=== PATIENT | male | born 1975 | race American Indian/Alaskan Native ===

== ENCOUNTER 2018-07-22 11:11 | Inpatient (IN) | payer OTHER ==
[2018-07-22] MEDS ORDERED: ASPIRIN PO ONE (11:26)
--- NOTE | 2018-07-22 11:28 | Emergency Department Report ---
Chief Complaint: Chest Pain Stated Complaint: CHEST PAIN Time Seen by Provider: 07/22/18 11:23 - HPI History of Present Illness: This is a 42 y.o. male that presents with chest pain for 1 hour. PMH Migraines, inguinal hernia Can't recall heart disease or medications. PCP with Prashant. Current cigarette and marijuana smoker Reports pain as tightening radiating to LUE with numbness. - Exam Vital Signs: Vital Signs 07/22/18 11:23 Temperature 97.8 F Pulse Rate 74 Respiratory 18 Rate Blood Pressure 154/81 O2 Sat by Pulse 100 Oximetry MSE screening note: Focused history and physical exam performed. Due to findings the following was ordered: Labs and Chest X-ray Main ED for further evaluation. ED Disposition for MSE Condition: Stable
[2018-07-22 12:12] LABS: Basophils % (Auto) 0.3 % (0.0-1.8); Eosinophils # (Auto) 0.1 K/mm3 (0.0-0.4); Eosinophils % (Auto) 2.4 % (0.0-4.3); Hematocrit 42.2 % (35.5-45.6); Hemoglobin 14.8 gm/dl (11.8-15.2); Lymphocytes # (Auto) 1.6 K/mm3 (1.2-5.4); Mean Corpuscular HGB Conc 35 % (32-34); Mean Corpuscular Volume 98 fl (84-94); Monocytes # (Auto) 0.5 K/mm3 (0.0-0.8); Monocytes % (Auto) 7.8 % (0.0-7.3); Platelet Count 178 K/mm3 (140-440); Red Cell Distribution Width 14.4 % (13.2-15.2)
[2018-07-22 12:27] LABS: BUN/Creatinine Ratio 14; Blood Urea Nitrogen 13 mg/dL (9-20); Calcium 9.3 mg/dL (8.4-10.2); Hemolysis Index 2
--- NOTE | 2018-07-22 12:48 | Emergency Department Report ---
ED Chest Pain HPI - General Chief Complaint: Chest Pain Stated Complaint: CHEST PAIN Time Seen by Provider: 07/22/18 11:23 Source: patient Mode of arrival: Ambulatory Limitations: No Limitations - History of Present Illness Initial Comments: 42 year old male complains of left-sided chest pain. He states it feels like a squeezing in the left side of his chest she sometimes feels in the back and cording to triage radiates to his left arm. He has had episodes similar to this. He states that he had another episode today at the point of ejaculation with intercourse. He is concerned because his cousin of an SD a few days ago. He also states there is coronary artery disease on his mother's side and affecting his brother. He has had no prior workup. He is not having chest pain now and other symptoms have resolved. He states that he does periodically feel short of breath with the chest pain. He's done no recent traveling. He does not complain of leg pain or swelling. He gives a somewhat confused past medical history to include aching a "heart pill" which is apparently metoprolol. His states that it is for high blood pressure. He lists "migraines and early MS" as other medical problems. He states he takes another unknown medication for migraine. MD Complaint: chest pain -: week(s), month(s) Onset: during rest Pain Location: left chest Pain Radiation: LUE, back Severity: moderate Quality: tightness Consistency: now resolved Improves With: nothing Worsens With: nothing re: dyspnea. denies: nausea, vomting, diaphoresis Other Symptoms: denies: cough, fever, syncope Treatments Prior to Arrival: none Aspirin use within the Past 7 Days: (0) No - Related Data Home Medications Medication Instructions Recorded Confirmed Last Taken Metoprolol [Lopressor] 25 mg PO DAILY 07/22/18 07/22/18 Unknown SUMAtriptan SUCCINATE [Imitrex] 50 mg PO ONCE PRN 07/22/18 07/22/18 Unknown Allergies Allergy/AdvReac Type Severity Reaction Status Date / Time acetaminophen AdvReac Unknown Verified 07/22/18 11:13 Heart Score - HEART Score History: Moderately suspicious EKG: Non-specific Age: < 45 Risk factors: > 3 risk factors or hx of atherosclerotic disease Troponin: < normal limit HEART Score: 4 - Critical Actions Critical Actions: 4-6 pts:12-16.6% risk of adverse cardiac event. Should be admitted ED Review of Systems ROS: Stated complaint: CHEST PAIN Other details as noted in HPI Constitutional: denies: chills, fever Eyes: denies: eye pain, eye discharge, vision change ENT: denies: ear pain, throat pain Respiratory: shortness of breath. denies: cough, wheezing Cardiovascular: chest pain. denies: palpitations Endocrine: no symptoms reported Gastrointestinal: denies: abdominal pain, nausea, diarrhea Genitourinary: denies: urgency, dysuria Musculoskeletal: denies: back pain, joint swelling, arthralgia Skin: denies: rash, lesions Neurological: denies: headache, weakness, paresthesias Psychiatric: denies: anxiety, depression Hematological/Lymphatic: denies: easy bleeding, easy bruising ED Past Medical Hx - Past Medical History Previous Medical History?: Yes Additional medical history: migraines. 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 - Social History Smoking Status: Current Every Day Smoker Substance Use Type: Alcohol, Marijuana - Medications Home Medications: Home Medications Medication Instructions Recorded Confirmed Last Taken Type Metoprolol [Lopressor] 25 mg PO DAILY 07/22/18 07/22/18 Unknown History SUMAtriptan SUCCINATE [Imitrex] 50 mg PO ONCE PRN 07/22/18 07/22/18 Unknown His tory ED Physical Exam - General Limitations: No Limitations General appearance: alert, in no apparent distress - Head Head exam: Present: atraumatic, normocephalic - Eye Eye exam: Present: normal appearance. Absent: scleral icterus - ENT ENT exam: Present: mucous membranes moist - Neck Neck exam: Present: normal inspection - Respiratory Respiratory exam: Present: normal lung sounds bilaterally. Absent: respiratory distress - Cardiovascular Cardiovascular Exam: Present: regular rate, normal rhythm. Absent: systolic murmur, diastolic murmur, rubs, gallop - GI/Abdominal GI/Abdominal exam: Present: soft, normal bowel sounds. Absent: distended, tenderness, guarding, rebound, rigid - Rectal Rectal exam: Present: deferred - Extremities Exam Extremities exam: Present: normal inspection - Back Exam Back exam: Present: normal inspection - Neurological Exam Neurological exam: Present: alert, oriented X3, CN II-XII intact. Absent: motor sensory deficit - Psychiatric Psychiatric exam: Present: normal affect, normal mood - Skin Skin exam: Present: warm, dry, intact, normal color. Absent: rash ED Course Vital Signs 07/22/18 11:23 Temperature 97.8 F Pulse Rate 74 Respiratory 18 Rate Blood Pressure 154/81 O2 Sat by Pulse 100 Oximetry - Reevaluation(s) Reevaluation #1: Patient was enough risk factors to warrant workup in the hospital. D-dimer is pending. Patient is discussed and admitted to Dr. Flores for further care and evaluation. 07/22/18 13:38 JAHAIRA score - Jahaira Score Age > 65: (0) No Aspirin use within the Past 7 Days: (0) No 3 or more CAD Risk Factors: (1) Yes 2 or more Angina events in past 24 hrs: (0) No Known CAD with more than 50% Stenosis: (0) No Elevated Cardiac Markers: (0) No ST Deviation Greater than 0.5mm: (0) No JAHAIRA Score: 1 ED Medical Decision Making - Lab Data Result diagrams: 07/22/18 11:48 07/22/18 11:48 Laboratory Results - last 24 hr 07/22/18 07/22/18 11:48 11:48 WBC 6.1 RBC 4.30 Hgb 14.8 Hct 42.2 MCV 98 H MCH 34 H MCHC 35 H RDW 14.4 Plt Count 178 Lymph % (Auto) 27.0 [place] % (Auto) 7.8 H Eos % (Auto) 2.4 Baso % (Auto) 0.3 Lymph # 1.6 [place] # 0.5 Eos # 0.1 Baso # 0.0 Seg Neutrophils % 62.5 Seg Neutrophils # 3.8 Sodium 141 Potassium 4.5 Chloride 105.1 Carbon Dioxide 25 Anion Gap 15 BUN 13 Creatinine 0.9 Estimated GFR > 60 BUN/Creatinine Ratio 14 Glucose 97 Calcium 9.3 Troponin T < 0.010 - EKG Data -: EKG Interpreted by Me EKG shows normal: sinus rhythm, axis, intervals, QRS complexes, ST-T waves Rate: normal - EKG Data Interpretation: no acute changes, LVH (consider) - Radiology Data Radiology results: image reviewed Chest x-ray no acute process Critical care attestation.: If time is entered above; I have spent that time in minutes in the direct care of this critically ill patient, excluding procedure time. ED Disposition Clinical Impression: Chest pain Qualifiers: Chest pain type: unspecified Qualified Code(s): R07.9 - Chest pain, unspecified Disposition: DC-09 OP ADMIT IP TO THIS HOSP Is pt being admited?: Yes Does the pt Need Aspirin: Yes Condition: Stable Instructions: Chest Pain (ED) Time of Disposition: 13:39
--- NOTE | 2018-07-22 13:02 | XRay Report ---
PROCEDURE: XR CHEST 1V AP TECHNIQUE: Chest, one view HISTORY: Chest Pain COMPARISON: None FINDINGS: The heart size is normal. There is no pulmonary vascular congestion seen. Mediastinal contours are normal. Lungs are clear. There is no pleural effusion seen. There is no pneumothorax seen. IMPRESSION: No acute abnormality identified. This document is electronically signed by Natalya Chamberlain MD., Jul 22 2018 12:59:45 PM ET
[2018-07-22] MEDS ORDERED: ASPIRIN ONE (13:59)
[2018-07-22 14:06] LABS: INR 0.98 (0.87-1.13)
[2018-07-22 14:07] LABS: Partial Thromboplastin Time 30.7 Sec. (24.2-36.6)
[2018-07-22 14:20] LABS: Alanine Aminotransferase 14 units/L (7-56); Albumin 4.3 g/dL (3.9-5); Creatine Kinase MB 1.4 ng/mL (0.0-4.0)
[2018-07-22 14:21] LABS: Bilirubin,Direct < 0.2 mg/dL (0-0.2)
[2018-07-22 14:56] LABS: Bilirubin,Urine NEG (Negative); Blood,Urine NEG (Negative); Color,Urine Yellow (Yellow); Mucus,Urine FEW /HPF; Protein,Urine <15 mg/dL mg/dL (Negative); Urobilinogen,Urine < 2.0 mg/dL (<2.0)
[2018-07-22 15:06] LABS: Amphetamine Screen,Urine PRESUMPTIVE NEGATIVE; Benzodiazepines Screen,Urine PRESUMPTIVE NEGATIVE; Cocaine Screen,Urine PRESUMPTIVE NEGATIVE; Methadone Screen,Urine PRESUMPTIVE NEGATIVE; Opiate Screen,Urine PRESUMPTIVE NEGATIVE
[2018-07-22 15:53] LABS: Cannabinoid Screen,Urine PRESUMPTIVE POSITIVE
--- NOTE | 2018-07-22 20:59 | History and Physical Report ---
History of Present Illness Date of examination: 07/22/18 Date of admission: 07/22/18 13:40 Chief complaint: Chest pain since AM History of present illness: 42 y/o male with pmh of Migraines and Htn comes in for L sided chest pain since financial aid.Chest pain radiating to the back.and left arm.Pain is sharp and intermittent.No diaphoresis ,palpitations or SOB.Patient is concerned bcoz his cousin of [place] recently.Also has strong family history CAD affecting his Mother and Uncle.No exacerbating or relieving factors. Past Medical History Previous Medical History?: Yes Migraines. 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 Social History Smoking Status: Current Every Day Smoker Substance Use Type: Alcohol, Marijuana Family History CAD Medications Home Medications: Home Medications Medication Instructions Recorded Confirmed Last Taken Type Metoprolol [Lopressor] 25 mg PO DAILY 07/22/18 07/22/18 Unknown History SUMAtriptan SUCCINATE [Imitrex] 50 mg PO ONCE PRN 07/22/18 07/22/18 Unknown History Review of Systems ROS: Stated complaint: CHEST PAIN Other details as noted in HPI Constitutional: denies: chills, fever Eyes: denies: eye pain, eye discharge, vision change ENT: denies: ear pain, throat pain Respiratory: shortness of breath. denies: cough, wheezing Cardiovascular: chest pain. denies: palpitations Endocrine: no symptoms reported Gastrointestinal: denies: abdominal pain, nausea, diarrhea Genitourinary: denies: urgency, dysuria Musculoskeletal: denies: back pain, joint swelling, arthralgia Skin: denies: rash, lesions Neurological: denies: headache, weakness, paresthesias Psychiatric: denies: anxiety, depression Hematological/Lymphatic: denies: easy bleeding, easy bruising Medications and Allergies Allergies Allergy/AdvReac Type Severity Reaction Status Date / Time acetaminophen AdvReac Unknown Verified 07/22/18 11:13 Home Medications Medication Instructions Recorded Confirmed Last Taken Type Metoprolol [Lopressor] 25 mg PO DAILY 07/22/18 07/22/18 Unknown History SUMAtriptan SUCCINATE [Imitrex] 50 mg PO ONCE PRN 07/22/18 07/22/18 Unknown History Exam - Constitutional Vitals: Temp Pulse Resp BP Pulse Ox 97.7 F 54 L 18 134/75 99 07/22/18 19:24 07/22/18 19:24 07/22/18 19:24 07/22/18 19:24 07/22/18 19:24 General appearance: Present: no acute distress, well-nourished - EENT Eyes: Present: PERRL ENT: hearing intact, clear oral mucosa - Neck Neck: Present: supple, normal ROM - Respiratory Respiratory effort: normal Respiratory: bilateral: CTA - Cardiovascular Heart rate: 60 Rhythm: regular Heart Sounds: Present: S1 & S2. Absent: rub, click - Extremities Extremities: no ischemia, pulses intact, pulses symmetrical, No edema Peripheral Pulses: within normal limits - Abdominal General gastrointestinal: Present: soft, non-tender, non-distended, normal bowel sounds Male genitourinary: Present: normal - Integumentary Integumentary: Present: clear, warm, dry - Musculoskeletal Musculoskeletal: gait normal, strength equal bilaterally - Psychiatric Psychiatric: appropriate mood/affect, intact judgment & insight - Neurologic Neurologic: CNII-XII intact, moves all extremities - Allied Health Allied health notes reviewed: nursing, case management Results - Labs CBC & Chem 7: 07/22/18 11:48 07/22/18 11:48 Labs: Laboratory Last Values WBC 6.1 K/mm3 (4.5-11.0) 07/22/18 11:48 RBC 4.30 M/mm3 (3.65-5.03) 07/22/18 11:48 Hgb 14.8 gm/dl (11.8-15.2) 07/22/18 11:48 Hct 42.2 % (35.5-45.6) 07/22/18 11:48 MCV 98 fl (84-94) H 07/22/18 11:48 MCH 34 pg (28-32) H 07/22/18 11:48 MCHC 35 % (32-34) H 07/22/18 11:48 RDW 14.4 % (13.2-15.2) 07/22/18 11:48 Plt Count 178 K/mm3 (140-440) 07/22/18 11:48 Lymph % (Auto) 27.0 % (13.4-35.0) 07/22/18 11:48 [place] % (Auto) 7.8 % (0.0-7.3) H 07/22/18 11:48 Eos % (Auto) 2.4 % (0.0-4.3) 07/22/18 11:48 Baso % (Auto) 0.3 % (0.0-1.8) 07/22/18 11:48 Lymph # 1.6 K/mm3 (1.2-5.4) 07/22/18 11:48 [place] # 0.5 K/mm3 (0.0-0.8) 07/22/18 11:48 Eos # 0.1 K/mm3 (0.0-0.4) 07/22/18 11:48 Baso # 0.0 K/mm3 (0.0-0.1) 07/22/18 11:48 Seg Neutrophils % 62.5 % (40.0-70.0) 07/22/18 11:48 Seg Neutrophils # 3.8 K/mm3 (1.8-7.7) 07/22/18 11:48 PT 13.6 Sec. (12.2-14.9) 07/22/18 13:45 INR 0.98 (0.87-1.13) 07/22/18 13:45 APTT 30.7 Sec. (24.2-36.6) 07/22/18 13:45 210.16 ng/mlDDU (0-234) 07/22/18 13:45 Sodium 141 mmol/L (137-145) 07/22/18 11:48 Potassium 4.5 mmol/L (3.6-5.0) 07/22/18 11:48 Chloride 105.1 mmol/L (98-107) 07/22/18 11:48 Carbon Dioxide 25 mmol/L (22-30) 07/22/18 11:48 15 mmol/L 07/22/18 11:48 BUN 13 mg/dL (9-20) 07/22/18 11:48 0.9 mg/dL (0.8-1.5) 07/22/18 11:48 Estimated GFR > 60 ml/min 07/22/18 11:48 14 % 07/22/18 11:48 Glucose 97 mg/dL (75-100) 07/22/18 11:48 Calcium 9.3 mg/dL (8.4-10.2) 07/22/18 11:48 Magnesium 1.70 mg/dL (1.7-2.3) 07/22/18 13:45 0.60 mg/dL (0.1-1.2) 07/22/18 13:45 < 0.2 mg/dL (0-0.2) 07/22/18 13:45 AST 14 units/L (5-40) 07/22/18 13:45 ALT 14 units/L (7-56) 07/22/18 13:45 59 units/L (35-129) 07/22/18 13:45 243 units/L (55-170) H 07/22/18 13:45 CK-MB (CK-2) 1.4 ng/mL (0.0-4.0) 07/22/18 13:45 CK-MB (CK-2) Rel Index 0.5 (0-4) 07/22/18 13:45 < 0.010 ng/mL (0.00-0.029) 07/22/18 17:37 NT-Pro-B Natriuret Pep 26.30 pg/mL (0-450) 07/22/18 13:45 6.7 g/dL (6.3-8.2) 07/22/18 13:45 4.3 g/dL (3.9-5) 07/22/18 13:45 1.8 % 07/22/18 13:45 Yellow (Yellow) 07/22/18 14:44 Clear (Clear) 07/22/18 14:44 9.0 (5.0-7.0) H 07/22/18 14:44 Ur Specific [place] 1.019 (1.003-1.030) 07/22/18 14:44 <15 mg/dl mg/dL (Negative) 07/22/18 14:44 Neg mg/dL (Negative) 07/22/18 14:44 Neg mg/dL (Negative) 07/22/18 14:44 Neg (Negative) 07/22/18 14:44 Neg (Negative) 07/22/18 14:44 Neg (Negative) 07/22/18 14:44 < 2.0 mg/dL (<2.0) 07/22/18 14:44 Ur Leukocyte Esterase Neg (Negative) 07/22/18 14:44 2.0 /HPF (0.0-6.0) 07/22/18 14:44 2.0 /HPF (0.0-6.0) 07/22/18 14:44 U Epithel Cells (Auto) 2.0 /HPF (0-13.0) 07/22/18 14:44 Few /HPF 07/22/18 14:44 Presumptive negative 07/22/18 14:44 Presumptive negative 07/22/18 14:44 Ur Barbiturates Screen Presumptive negative 07/22/18 14:44 Ur Phencyclidine Scrn Presumptive negative 07/22/18 14:44 Ur Amphetamines Screen Presumptive negative 07/22/18 14:44 U Benzodiazepines Scrn Presumptive negative 07/22/18 14:44 Presumptive negative 07/22/18 14:44 U Marijuana (THC) Screen Presumptive positive 07/22/18 14:44 Disclamer 07/22/18 14:44 Short CBC 07/22/18 Range/Units 11:48 WBC 6.1 (4.5-11.0) K/mm3 Hgb 14.8 (11.8-15.2) gm/dl Hct 42.2 (35.5-45.6) % Plt Count 178 (140-440) K/mm3 BMP 07/22/18 11:48 Sodium 141 Potassium 4.5 Chloride 105.1 Carbon Dioxide 25 BUN 13 Creatinine 0.9 Glucose 97 Calcium 9.3 Cardiac Enzymes 07/22/18 07/22/18 07/22/18 Range/Units 11:48 13:45 14:44 Total Creatine Kinase 243 H (55-170) units/L CK-MB (CK-2) 1.4 (0.0-4.0) ng/mL Troponin T < 0.010 < 0.010 (0.00-0.029) ng/mL 07/22/18 07/22/18 Range/Units 17:37 21:36 Total Creatine Kinase (55-170) units/L CK-MB (CK-2) (0.0-4.0) ng/mL Troponin T < 0.010 < 0.010 (0.00-0.029) ng/mL Liver Function 07/22/18 Range/Units 13:45 Total Bilirubin 0.60 (0.1-1.2) mg/dL Direct Bilirubin < 0.2 (0-0.2) mg/dL AST 14 (5-40) units/L ALT 14 (7-56) units/L Alkaline Phosphatase 59 (35-129) units/L Albumin 4.3 (3.9-5) g/dL Urine 07/22/18 Range/Units 14:44 Urine Color Yellow (Yellow) Urine pH 9.0 H (5.0-7.0) Ur Specific [place] 1.019 (1.003-1.030) Urine Protein <15 mg/dl (Negative) mg/dL Urine Glucose (UA) Neg (Negative) mg/dL - Imaging and Cardiology EKG: report reviewed (NSR 60/min LVH) Chest x-ray: report reviewed (NAF) Assessment and Plan Advance Directives: Yes (Full code) VTE prophylaxis?: Chemical Plan of care discussed with patient/family: Yes - Patient Problems (1) Chest pain Current Visit: Yes Status: Acute Qualifiers: Chest pain type: unspecified Qualified Code(s): R07.9 - Chest pain, unspecified Plan to address problem: Chest pain r/o AR Serial Troponins andLexiscan in AM Costochondritis and GERD in differential diagnosis (2) HTN (hypertension) Current Visit: Yes Status: Chronic Qualifiers: Hypertension type: essential hypertension Qualified Code(s): I10 - Essential (primary) hypertension Plan to address problem: Cont Metoprolol (3) Migraine Current Visit: Yes Status: Chronic Plan to address problem: Cont Sumatriptan on Prn basis (4) DVT prophylaxis Current Visit: Yes Status: Acute Plan to address problem: On Lovenox and GI pophylaxis
[2018-07-22] MEDS ORDERED: TYLENOL PO PRN (21:01)
[2018-07-22] MEDS ORDERED: PERCOCET 5/325 PO PRN (21:01)
[2018-07-22] MEDS ORDERED: SODIUM CHLORIDE FLUSH SYRINGE 10 ML IV PRN (21:01)
[2018-07-22] MEDS ORDERED: DILAUDID IV PRN (21:01)
[2018-07-22] MEDS ORDERED: ZOFRAN IV PRN (21:01)
[2018-07-22] MEDS ORDERED: IMITREX PO PRN (21:14)
[2018-07-22] MEDS: PEPCID IV SCH (21:44)
[2018-07-22] MEDS: SODIUM CHLORIDE FLUSH SYRINGE 10 ML IV SCH (21:45)
[2018-07-22] MEDS: LOPRESSOR PO SCH (22:52)
[2018-07-23 07:44] LABS: Basophils # (Auto) 0.1 K/mm3 (0.0-0.1); Basophils % (Auto) 0.7 % (0.0-1.8); Eosinophils # (Auto) 0.1 K/mm3 (0.0-0.4); Hematocrit 41.7 % (35.5-45.6); Hemoglobin 14.2 gm/dl (11.8-15.2); Lymphocytes # (Auto) 1.9 K/mm3 (1.2-5.4); Lymphocytes % (Auto) 27.9 % (13.4-35.0); Mean Corpuscular HGB Conc 34 % (32-34); Mean Corpuscular Volume 99 fl (84-94); Monocytes # (Auto) 0.7 K/mm3 (0.0-0.8); Monocytes % (Auto) 10.1 % (0.0-7.3); Platelet Count 161 K/mm3 (140-440); Red Blood Count 4.21 M/mm3 (3.65-5.03); Red Cell Distribution Width 14.3 % (13.2-15.2)
[2018-07-23 08:08] LABS: Alanine Aminotransferase 13 units/L (7-56); Albumin 4.2 g/dL (3.9-5); BUN/Creatinine Ratio 12; Blood Urea Nitrogen 13 mg/dL (9-20); Calcium 9.1 mg/dL (8.4-10.2); Hemolysis Index 10
[2018-07-23] MEDS ORDERED: LEXISCAN IV ONE (08:10)
[2018-07-23] MEDS: SODIUM CHLORIDE FLUSH SYRINGE 10 ML IV SCH (12:12)
[2018-07-23] MEDS: PEPCID IV SCH (12:12)
[2018-07-23 12:14] VITALS: BP 122/71
[2018-07-23] MEDS: LOPRESSOR PO SCH (12:14)
--- NOTE | 2018-07-23 12:43 | Discharge Summary ---
Providers - Providers Date of Admission: 07/22/18 13:40 Date of discharge: 07/23/18 Attending physician: FRANCO WRIGHT Primary care physician: KRZYSZTOF SANTIAGO Hospitalization Condition: Stable Hospital course: Discharge Diagnoses: Chest pains, costochrondritis most likely, stress test negative Hypertension Migraine Tobacco dependency: counseling done, home with nicotine patch, also, needs to stop also. Marijuana use: counseling done Disposition: DC-01 TO HOME OR SELFCARE Time spent for discharge: 32 minutes Core Measure Documentation - Palliative Care Palliative Care/ Comfort Measures: Not Applicable - Core Measures Any of the following diagnoses?: none - VTE Discharge Requirements Deep Vein Thrombosis/Pulmonary Embolism Present on Admission: No Has pt received <5 days of overlap therapy or INR<2.0: No Anticoagulant overlap therapy prescribed at discharge: No Contraindication No Overlap Therapy order at DC: Not Indicated Exam - Physical Exam Narrative exam: GEN: WDWN, NAD, Awake, Alert, Orientated HEENT: NCAT, EOMI, PERRL, OP Clear NECK: supple, no adenopathy, no thyromegaly, no JVD CVS/HEART: RRR, normal S1S2, pulses present bilaterally CHEST/LUNGS: CTA B, Symmetrical chest expansion, good air entry bilaterally, reproducible chest wall tenderness GI/Abdomen: soft, NTND, good bowel sounds, no guarding or rebound /Bladder: no suprapubic tenderness, no CVA or paraspinal tenderness EXT/Skin: no c/c/e, no obvious rash MSK: FROM x 4 Neuro: CN 2-12 grossly intact, no new focal deficits Psych: calm - Constitutional Vitals: Temp Pulse Resp BP Pulse Ox 97.5 F L 57 L 18 122/71 96 07/23/18 11:39 07/23/18 12:14 07/23/18 11:39 07/23/18 12:14 07/23/18 04:22 Plan Activity: other (no strenous activity unless cleared by PCP) Diet: low salt Follow up with: KRZYSZTOF SANTIAGO MD [Primary Care Provider] - 7 Days Prescriptions: Nicotine [Habitrol] 21 mg TD DAILY #30 patch Pantoprazole [Protonix] 40 mg PO QDAY #14 tablet
[2018-07-23] MEDS ORDERED: LOVENOX SUB-Q SCH (22:00)
--- NOTE | 2018-07-24 01:15 | Treadmill Report ---
NUCLEAR PERFUSION STUDY READING PHYSICIAN: Bandar Beltrán MD REASON FOR STUDY: Chest pain and shortness of breath. IMAGING PROTOCOL: The patient received 10 mCi of Technetium 99m Tetrofosmin for resting image and 28 mCi of Technetium 99m Tetrofosmin for stress imaging. The imaging for the whole procedure was completed 30-90 minutes following the initial injection of Technetium 99m Tetrofosmin. The SPECT imaging in the 180 degree arc was performed in the right anterior oblique projection. Computerized reconstruction of the images was performed for analysis. IMAGING RESULTS: Normal cavity size from stress to rest. Normal distribution of radionuclide in the anterior, inferior, septal, and apical regions. The patient exercised on Fabio protocol for 13 minutes 40 seconds, achieved 83% max predicted heart rate, had no exaggerated BP response, no EKG changes. Stop secondary to shortness of breath. SUMMARY: 1. Negative treadmill EKG, 83% max predicted heart, sensitivity might be mildly compromised. 2. No exaggerated BP response to exercise. 3. Good exercise capacity 13 minutes 40 seconds Fabio protocol. 4. Normal rest and stress myocardial perfusion scan. No significant ischemia. No wall motion abnormality. Gated SPECT, 59%. JOB# [id number] VRDave/NTS
== END 2018-07-23 15:26 | disposition home or self-care (01) | DRG 206 ==
LOC: ED 11:11 → 4A 13:40
PROVIDERS: ADMIT Internal Medicine; ATTEND Internal Medicine
DX: M94.0 Chondrocostal junction syndrome [Tietze] (principal); G43.909 Migraine, unspecified, not intractable, without status migrainosus; F17.210 Nicotine dependence, cigarettes, uncomplicated; F12.90 Cannabis use, unspecified, uncomplicated; I25.10 Atherosclerotic heart disease of native coronary artery without angina pectoris; Z88.6 Allergy status to analgesic agent; Z71.51 Drug abuse counseling and surveillance of drug abuser; Z71.6 Tobacco abuse counseling
CPT/HCPCS: 36415; 71045; 78452; 80048; 80053; 80076; 80307; 81001; 82550; 82553; 83036; 83735; 83880; 84484; 85025; 85379; 85610; 85730; 93005; 93010; 93017; G0378; A9502

== ENCOUNTER 2018-11-28 09:12 | Emergency (ER) | payer OTHER ==
[2018-11-28] MEDS ORDERED: SODIUM CHLORIDE 0.9% 1000 ML 1,000 ML IV ONE (11:07)
[2018-11-28] MEDS ORDERED: FAMOTIDINE 20 MG/2 ML INJ IV ONE (11:07)
[2018-11-28] MEDS ORDERED: ONDANSETRON 4 MG/2 ML INJ IV ONE (11:07)
[2018-11-28] MEDS ORDERED: DICYCLOMINE 20 MG/2 ML INJ IM ONE (11:07)
[2018-11-28] MEDS ORDERED: KETOROLAC 30 MG/1 ML INJ IV ONE (11:07)
[2018-11-28 12:08] LABS: Basophils % (Auto) 0.3 % (0.0-1.8); Eosinophils % (Auto) 0.2 % (0.0-4.3); Hematocrit 42.4 % (35.5-45.6); Hemoglobin 14.3 gm/dl (11.8-15.2); Lymphocytes # (Auto) 1.2 K/mm3 (1.2-5.4); Mean Corpuscular HGB Conc 34 % (32-34); Mean Corpuscular Volume 98 fl (84-94); Monocytes # (Auto) 0.4 K/mm3 (0.0-0.8); Monocytes % (Auto) 5.3 % (0.0-7.3); Platelet Count 154 K/mm3 (140-440); Red Blood Count 4.34 M/mm3 (3.65-5.03); Red Cell Distribution Width 13.9 % (13.2-15.2)
[2018-11-28 12:48] LABS: Hemolysis Index 300
[2018-11-28 13:06] LABS: Alanine Aminotransferase TNR units/L (7-56); BUN/Creatinine Ratio TNR; Blood Urea Nitrogen TNR mg/dL (9-20); Calcium TNR mg/dL (8.4-10.2)
[2018-11-28 13:07] LABS: Albumin TNR g/dL (3.9-5)
[2018-11-28 15:29] LABS: Alanine Aminotransferase 12 units/L (7-56); Albumin 4.1 g/dL (3.9-5); BUN/Creatinine Ratio 12; Blood Urea Nitrogen 7 mg/dL (9-20); Calcium 8.6 mg/dL (8.4-10.2); Hemolysis Index 2
--- NOTE | 2018-11-28 16:53 | Cat Scan Report ---
CT abdomen pelvis wo con INDICATION: NVD prob fever, LLQ pain. TECHNIQUE: All CT scans at this location are performed using the following dose modulation technique: Automated exposure control. CONTRAST: None. COMPARISON: None available. CT ABDOMEN: The parenchymal organs are unremarkable in appearance. Negative for abdominal mass, fluid or inflammation. The bowel is not dilated or thickened. 5 details limited by motion artifact. CT PELVIS: The appendix is normal. Negative for distal ureteral stone, pelvic fluid collection or inf lammation. IMPRESSION: Negative for obstruction or localized inflammation. Signer Name: Gurdeep Alejandra MD Signed: 11/28/2018 4:48 PM Workstation Name: [id number]
--- NOTE | 2018-11-28 17:02 | Emergency Department Report ---
ED N/V/D HPI - General Chief complaint: Abdominal Pain Stated complaint: STOMACH PAIN/DIARRHEA/VOMITING Time Seen by Provider: 11/28/18 11:03 Source: patient Mode of arrival: Ambulatory Limitations: No Limitations - History of Present Illness Initial comments: Patient is a 43-year-old Citizen Of The [place] male with a 2-1/2 day history of nausea vomiting diarrhea. Patient states before he started having symptoms he had eaten at [employer] [place]. Patient states now he seen some streaks of blood in his vomit but before that it was food contents. He denies any hematuria or hematochezia. Patient has some crampy lower abdominal pain which is right greater than left. He has had chills but no objective fevers. Patient denies cough congestion neck stiffness at this time. - Related Data Home Medications Medication Instructions Recorded Confirmed Last Taken Metoprolol [Lopressor TAB] 25 mg PO DAILY 07/22/18 07/22/18 Unknown SUMAtriptan SUCCINATE [Imitrex] 50 mg PO ONCE PRN 07/22/18 07/22/18 Unknown Previous Rx's Medication Instructions Recorded Last Taken Type Nicotine [Habitrol] 21 mg TD DAILY #30 patch 07/23/18 Unknown Rx Pantoprazole [Protonix] 40 mg PO QDAY #14 tablet 07/23/18 Unknown Rx Dicyclomine [Bentyl] 20 mg PO QID #10 tablet 11/28/18 Unknown Rx Diphenoxylate/Atropine [Lomotil] 1 tab PO Q4H PRN #10 tablet 11/28/18 Unknown Rx Famotidine [Pepcid] 20 mg PO BID #20 tablet 11/28/18 Unknown Rx Ondansetron [Zofran Odt] 4 mg PO Q8HR #10 tab.rapdis 11/28/18 Unknown Rx traMADol [Ultram] 50 mg PO Q6HR PRN #10 tablet 11/28/18 Unknown Rx Allergies Allergy/AdvReac Type Severity Reaction Status Date / Time acetaminophen AdvReac Unknown Verified 07/22/18 11:13 ED Review of Systems ROS: Stated complaint: STOMACH PAIN/DIARRHEA/VOMITING Other details as noted in HPI Comment: All other systems reviewed and negative ED Past Medical Hx - Past Medical History Hx Headaches / Migraines: Yes Additional medical history: migraines. 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 - Social History Smoking Status: Current Every Day Smoker Substance Use Type: Alcohol, Marijuana - Medications Home Medications: Home Medications Medication Instructions Recorded Confirmed Last Taken Type Metoprolol [Lopressor TAB] 25 mg PO DAILY 07/22/18 07/22/18 Unknown History SUMAtriptan SUCCINATE [Imitrex] 50 mg PO ONCE PRN 07/22/18 07/22/18 Unknown History Nicotine [Habitrol] 21 mg TD DAILY #30 patch 07/23/18 Unknown Rx Pantoprazole [Protonix] 40 mg PO QDAY #14 tablet 07/23/18 Unknown Rx Dicyclomine [Bentyl] 20 mg PO QID #10 tablet 11/28/18 Unknown Rx Diphenoxylate/Atropine [Lomotil] 1 tab PO Q4H PRN #10 tablet 11/28/18 Unknown Rx Famotidine [Pepcid] 20 mg PO BID #20 tablet 11/28/18 Unknown Rx Ondansetron [Zofran Odt] 4 mg PO Q8HR #10 tab.rapdis 11/28/18 Unknown Rx traMADol [Ultram] 50 mg PO Q6HR PRN #10 tablet 11/28/18 Unknown Rx ED Physical Exam - General Limitations: No Limitations General appearance: alert, in no apparent distress - Head Head exam: Present: atraumatic, normocephalic - Eye Eye exam: Present: normal appearance - ENT ENT exam: Present: mucous membranes moist - Neck Neck exam: Present: normal inspection - Respiratory Respiratory exam: Present: normal lung sounds bilaterally. Absent: respiratory distress, wheezes, rales, rhonchi - Cardiovascular Cardiovascular Exam: Present: regular rate, normal rhythm. Absent: systolic murmur, diastolic murmur, rubs, gallop - GI/Abdominal GI/Abdominal exam: Present: soft, tenderness (LLQ pain), normal bowel sounds. Absent: distended, guarding, rebound - Rectal Rectal exam: Present: deferred - Extremities Exam Extremities exam: Present: normal inspection - Back Exam Back exam: Present: normal inspection - Neurological Exam Neurological exam: Present: alert, oriented X3 - Psychiatric Psychiatric exam: Present: normal affect, normal mood - Skin Skin exam: Present: warm, dry, intact, normal color. Absent: rash ED Course Vital Signs 11/28/18 11/28/18 09:22 13:20 Temperature 97.8 F 98.4 F Pulse Rate 55 L 41 L Respiratory 20 16 Rate Blood Pressure 145/70 Blood Pressure 117/80 [Left] O2 Sat by Pulse 100 100 Oximetry ED Medical Decision Making - Lab Data Result diagrams: 11/28/18 11:46 11/28/18 14:23 Lab Results 11/28/18 11/28/18 11/28/18 Range/Units 11:46 11:46 14:23 WBC 8.4 (4.5-11.0) K/mm3 RBC 4.34 (3.65-5.03) M/mm3 Hgb 14.3 (11.8-15.2) gm/dl Hct 42.4 (35.5-45.6) % MCV 98 H (84-94) fl MCH 33 H (28-32) pg MCHC 34 (32-34) % RDW 13.9 (13.2-15.2) % Plt Count 154 (140-440) K/mm3 Lymph % (Auto) 14.0 (13.4-35.0) % [place] % (Auto) 5.3 (0.0-7.3) % Eos % (Auto) 0.2 (0.0-4.3) % Baso % (Auto) 0.3 (0.0-1.8) % Lymph # 1.2 (1.2-5.4) K/mm3 [place] # 0.4 (0.0-0.8) K/mm3 Eos # 0.0 (0.0-0.4) K/mm3 Baso # 0.0 (0.0-0.1) K/mm3 Seg Neutrophils % 80.2 H (40.0-70.0) % Seg Neutrophils # 6.7 (1.8-7.7) K/mm3 Sodium TNR 139 Potassium TNR 4.3 Chloride TNR 105.4 Carbon Dioxide TNR 23 Anion Gap TNR 15 BUN TNR 7 L Creatinine TNR 0.6 L Estimated GFR TNR > 60 BUN/Creatinine Ratio TNR 12 Glucose TNR 113 H Calcium TNR 8.6 Total Bilirubin TNR 0.40 AST TNR 13 ALT TNR 12 Alkaline Phosphatase TNR 55 Total Protein TNR 6.4 Albumin TNR 4.1 Albumin/Globulin Ratio TNR 1.8 - EKG Data 11/28/18 16:59 [facility] [address] [place] [address] Cat Scan Report Signed Patient: YARY PROCTOR JR MR#: [id number] : 1975 Acct:[id number] Age/Sex: 43 / M ADM Date: 11/28/18 Loc: ED Attending Dr: Ordering Physician: MANUEL WEBER MD Date of Service: 11/28/18 Procedure(s): CT abdomen pelvis wo con Accession Number(s): [id number] cc: MANUEL WEBER MD CT abdomen pelvis wo con INDICATION: NVD prob fever, LLQ pain. TECHNIQUE: All CT scans at this location are performed using the following dose modulation technique: Automated exposure control. CONTRAST: None. COMPARISON: None available. CT ABDOMEN: The parenchymal organs are unremarkable in appearance. Negative for abdominal mass, fluid or inflammation. The bowel is not dilated or thickened. 5 details limited by motion artifact. CT PELVIS: The appendix is normal. Negative for distal ureteral stone, pelvic fluid collection or inflammation. IMPRESSION: Negative for obstruction or localized inflammation. Signer Name: Gurdeep Alejandra MD Signed: 11/28/2018 4:48 PM Workstation Name: [id number] Transcribed By: ES Dictated By: Gurdeep Alejandra MD Electronically Authenticated By: Gurdeep Alejandra MD Signed Date/Time: 11/28/18 1648 - Radiology Data see above - Medical Decision Making Patient is a 43-year-old black male who ate some chicken and is started having nausea vomiting diarrhea. Because the causative agent is not known is unknown whether the chicken or another meal caused his symptoms. Patient was hydrated given antiemetics and is feeling much improved. CT is negative for colitis or surgical emergency. Patient will be discharged home with medications for symptomatically relief. Critical care attestation.: If time is entered above; I have spent that time in minutes in the direct care of this critically ill patient, excluding procedure time. ED Disposition Clinical Impression: Food poisoning, Gastroenteritis Disposition: DC- TO HOME OR SELFCARE Is pt being admited?: No Does the pt Need Aspirin: No Condition: Stable Instructions: Gastroenteritis (ED) Referrals: PRIMARY CARE, [Primary Care Provider] - 3-5 Days Time of Disposition: 17:01
[2018-11-28 17:43] VITALS: BP 133/90
== END 2018-11-28 17:42 | disposition home or self-care (01) ==
LOC: ED 09:12
DX: K52.9 Noninfective gastroenteritis and colitis, unspecified (principal); A05.9 Bacterial foodborne intoxication, unspecified; G43.909 Migraine, unspecified, not intractable, without status migrainosus; F17.200 Nicotine dependence, unspecified, uncomplicated; F12.10 Cannabis abuse, uncomplicated; Z88.6 Allergy status to analgesic agent
CPT/HCPCS: 36415; 74176; 80053; 85025; 96361; 96372; 96374; 96375; 99284; J0500; J1885; J2405; J7030